=== PATIENT | male | born 1990 | race Caucasian/White ===

== ENCOUNTER 2023-03-25 14:42 | Emergency (ER) | payer MEDICAID ==
[~2023-03-25] VITALS: Ht 167.6 cm; Wt 73.0 kg
[2023-03-25 14:44] VITALS: BP 112/71; PULSE 91; RESP 14; TEMP 98; O2SAT 96
[2023-03-25 16:17] LABS: BASOPHILS % 0.4 % (0.0-2.0); EOSINOPHILS % 4.4 % (0.0-5.0); HEMATOCRIT. 40.9 % (42.0-52.0); LYMPHOCYTES % 24.6 % (20.0-50.0); MEAN CORPUSCULAR HEMOGLOBIN 31.5 pg (28.0-32.0); MEAN CORPUSCULAR HGB CONC 34.2 g/dL (31.0-37.0); MEAN CORPUSCULAR VOLUME 92.2 fL (80.0-94.0); MONOCYTES % 8.2 % (2.0-8.0); NEUTROPHILS % 62.4 % (40.0-76.0); PLATELET 249 x1000/uL (130-400); RED BLOOD CELL COUNT 4.44 mill/uL (4.7-6.1); RED CELL DISTRIBUTION WIDTH 13.4 % (11.6-14.6); WHITE BLOOD COUNT 8.7 x1000/uL (4.5-11.0)
[2023-03-25 16:24] LABS: CHLORIDE 111 mEq/L (98-107); INDEX HEMOLYSI 1 (1-3); INDEX ICTERIC 1 (1-4); INDEX LIPEMIC 1 (1-3); SODIUM 141 mEq/L (136-145)
[2023-03-25 16:34] LABS: ALANINE AMINOTRANSFERASE 29 IU/L (13-61); ALBUMIN 3.6 g/dL (3.4-5.0); ASPARTATE AMINOTRANSFERASE 35 IU/L (15-37); BILIRUBIN TOTAL 0.3 mg/dL (0.1-1.0); CALCIUM 8.1 mg/dL (8.5-10.1); CARBON DIOXIDE 20 mEq/L (21-32); CREATININE 0.5 mg/dL (0.6-1.3); ETHANOL BLOOD 114 mg/dL (-10); GLUCOSE 106 mg/dL (70-105); PROTEIN TOTAL 6.8 g/dL (6.0-8.3); UREA NITROGEN BLOOD 9 mg/dL (7-21)
[2023-03-25 16:40] LABS: POTASSIUM 2.8 mEq/L (3.5-5.1)
[2023-03-25] MEDS ORDERED: MAGNESIUM OXIDE 400MG TABLET PO SCH (16:45)
[2023-03-25] MEDS ORDERED: POTASSIUM CHLORIDE 20MEQ TABLET SR PO ONE (16:45)
== END 2023-03-25 18:13 | disposition home or self-care (01) ==
LOC: ER 14:48
DX: F10.20 Alcohol dependence, uncomplicated (principal); R41.82 Altered mental status, unspecified; Y90.5 Blood alcohol level of 100-119 mg/100 ml
CPT/HCPCS: 36415; 80053; 80320; 85025; 99283; G0480

== ENCOUNTER 2023-05-02 22:57 | Emergency (ER) | payer MEDICAID ==
[~2023-05-02] VITALS: Ht 172.7 cm; Wt 98.2 kg
[2023-05-02 23:42] VITALS: O2SAT 97
[2023-05-03 00:05] LABS: BASOPHILS % 1.1 % (0.0-2.0); EOSINOPHILS % 6.1 % (0.0-5.0); HEMATOCRIT. 39.9 % (42.0-52.0); HEMOGLOBIN. 13.5 g/dL (14.0-18.0); LYMPHOCYTES % 30.3 % (20.0-50.0); MEAN CORPUSCULAR HEMOGLOBIN 31.3 pg (28.0-32.0); MEAN CORPUSCULAR HGB CONC 33.9 g/dL (31.0-37.0); MEAN CORPUSCULAR VOLUME 92.3 fL (80.0-94.0); MONOCYTES % 7.7 % (2.0-8.0); NEUTROPHILS % 54.8 % (40.0-76.0); PLATELET 259 x1000/uL (130-400); RED BLOOD CELL COUNT 4.33 mill/uL (4.7-6.1); RED CELL DISTRIBUTION WIDTH 13.4 % (11.6-14.6); WHITE BLOOD COUNT 8.4 x1000/uL (4.5-11.0)
[2023-05-03 00:11] LABS: CHLORIDE 110 mEq/L (98-107); INDEX HEMOLYSI 1 (1-3); INDEX ICTERIC 1 (1-4); INDEX LIPEMIC 1 (1-3); POTASSIUM 3.5 mEq/L (3.5-5.1); SODIUM 141 mEq/L (136-145)
[2023-05-03 00:19] LABS: ALANINE AMINOTRANSFERASE 32 IU/L (13-61); ALBUMIN 3.8 g/dL (3.4-5.0); ASPARTATE AMINOTRANSFERASE 23 IU/L (15-37); BILIRUBIN TOTAL 0.4 mg/dL (0.1-1.0); CALCIUM 8.6 mg/dL (8.5-10.1); CARBON DIOXIDE 25 mEq/L (21-32); CREATININE 0.7 mg/dL (0.6-1.3); ETHANOL BLOOD < 10 mg/dL (<10); GLUCOSE 130 mg/dL (70-105); PROTEIN TOTAL 6.6 g/dL (6.0-8.3); UREA NITROGEN BLOOD 9 mg/dL (7-21)
[2023-05-03 02:43] LABS: CLARITY URINE CLEAR (CLEAR); COLOR URINE YELLOW (YELLOW); GLUCOSE URINE NEGATIVE (NEGATIVE); KETONES URINE NEGATIVE (NEGATIVE); LEUKOCYTE ESTERASE URINE NEGATIVE (NEGATIVE); NITRITE URINE NEGATIVE (NEGATIVE); OCCULT BLOOD URINE NEGATIVE (NEGATIVE); PH URINE 5.5 (4.5-8.0); PROTEIN URINE NEGATIVE (NEGATIVE); SPECIFIC GRAVITY URINE 1.022 (1.005-1.030)
[2023-05-03 03:05] LABS: *AMPHETAMINES SCREEN URINE NEGATIVE (NEGATIVE); *BARBITURATES SCREEN URINE NEGATIVE (NEGATIVE); *BENZODIAZEPINES SCREEN URINE NEGATIVE (NEGATIVE); *COCAINE SCREEN URINE NEGATIVE (NEGATIVE); CANNABINOID URINE SCREEN NEGATIVE (NEGATIVE); ECSTASY MDMA SCREEN URINE NEGATIVE (NEGATIVE); OPIATES URINE SCREEN NEGATIVE (NEGATIVE); PHENCYCLIDINE URINE SCREEN NEGATIVE (NEGATIVE)
[2023-05-03 10:08] VITALS: BP 132/75; PULSE 80; RESP 16; TEMP 98
== END 2023-05-03 10:23 | disposition home or self-care (01) ==
LOC: ER 22:57
DX: R44.3 Hallucinations, unspecified (principal); Z20.822 Contact with and (suspected) exposure to COVID-19
CPT/HCPCS: 80053; 80320; 85025; 36415; 99284; 80305; 81003; 71045; 87426; C9803; G0480

== ENCOUNTER 2023-08-19 02:53 | Emergency (ER) | payer MEDICAID ==
[~2023-08-19] VITALS: Ht 172.7 cm; Wt 95.0 kg
[2023-08-19 03:07] VITALS: BP 124/84; PULSE 86; RESP 16; TEMP 98.7; O2SAT 100
== END 2023-08-19 08:01 | disposition left against medical advice (07) ==
LOC: ER 02:53
DX: R53.1 Weakness (principal); Z53.21 Procedure and treatment not carried out due to patient leaving prior to being seen by health care provider
CPT/HCPCS: 99281

== ENCOUNTER 2024-01-24 10:44 | Emergency (ER) | payer MEDICAID ==
[~2024-01-24] VITALS: Ht 177.8 cm; Wt 81.0 kg
[2024-01-24 10:59] VITALS: BP 152/62; PULSE 118; RESP 20; TEMP 97.9; O2SAT 100
== END 2024-01-24 11:00 | disposition left against medical advice (07) ==
LOC: ER 10:44
DX: F41.9 Anxiety disorder, unspecified (principal); Z53.21 Procedure and treatment not carried out due to patient leaving prior to being seen by health care provider

== ENCOUNTER 2024-02-23 20:35 | Emergency (ER) | payer MEDICAID ==
[~2024-02-23] VITALS: Ht 172.7 cm; Wt 70.0 kg
[2024-02-23 20:39] VITALS: BP 148/88; PULSE 104; RESP 18; TEMP 98.4; O2SAT 99
[2024-02-24] MEDS ORDERED: HYDR50SY PO (03:55)
[2024-02-24] MEDS ORDERED: ARIP20TA2 MT (03:55)
== END 2024-02-23 21:01 | disposition left against medical advice (07) ==
LOC: ER 20:35
DX: F41.1 Generalized anxiety disorder (principal); F12.10 Cannabis abuse, uncomplicated; F10.20 Alcohol dependence, uncomplicated; Z88.8 Allergy status to other drugs, medicaments and biological substances; Y90.9 Presence of alcohol in blood, level not specified
CPT/HCPCS: 99283

== ENCOUNTER 2024-02-24 02:41 | Emergency (ER) | payer MEDICAID ==
[~2024-02-24] VITALS: Ht 170.2 cm; Wt 73.0 kg
[2024-02-24 02:57] VITALS: O2SAT 100
[2024-02-24] MEDS ORDERED: ARIP20TA2 MT (03:55)
[2024-02-24] MEDS ORDERED: HYDR50SY PO (03:55)
[2024-02-24] MEDS ORDERED: ALPRAZOLAM 0.5 MG TABLET PO ONE (04:00)
[2024-02-24] MEDS: OLANZAPINE 5MG TABLET ODT PO ONE (04:28)
[2024-02-24] MEDS: ALPRAZOLAM 0.25 MG TABLET PO NR (04:28)
[2024-02-24 04:30] VITALS: BP 136/86; PULSE 89; RESP 20; TEMP 98.8
== END 2024-02-24 04:33 | disposition home or self-care (01) ==
LOC: ER 02:41
DX: F41.9 Anxiety disorder, unspecified (principal); F20.9 Schizophrenia, unspecified; F12.90 Cannabis use, unspecified, uncomplicated; F10.20 Alcohol dependence, uncomplicated; Z91.148 Patient's other noncompliance with medication regimen for other reason; Z88.8 Allergy status to other drugs, medicaments and biological substances
CPT/HCPCS: 99283

== ENCOUNTER 2024-02-24 22:29 | Emergency (ER) | payer MEDICAID ==
[~2024-02-24] VITALS: Ht 406.4 cm; Wt 91.0 kg
[~2024-02-24 22:29] MED LIST: ARIP20TA2 MT; HYDR50SY PO
[2024-02-24 22:38] VITALS: BP 132/86; PULSE 99; RESP 16; TEMP 97.4; O2SAT 100
== END 2024-02-24 23:10 | disposition home or self-care (01) ==
LOC: ER 22:29
DX: F10.129 Alcohol abuse with intoxication, unspecified (principal); F20.9 Schizophrenia, unspecified; F12.10 Cannabis abuse, uncomplicated; Y90.9 Presence of alcohol in blood, level not specified
CPT/HCPCS: 99283

== ENCOUNTER 2024-03-03 05:07 | Emergency (ER) | payer MEDICAID ==
[~2024-03-03] VITALS: Ht 172.7 cm; Wt 86.0 kg
[2024-03-03 05:13] VITALS: O2SAT 100
[2024-03-03 05:18] VITALS: BP 139/87; PULSE 83; RESP 18; TEMP 98.2; O2SAT 99
== END 2024-03-03 06:00 | disposition left against medical advice (07) ==
LOC: ER 05:07
DX: F41.9 Anxiety disorder, unspecified (principal); Z53.21 Procedure and treatment not carried out due to patient leaving prior to being seen by health care provider

== ENCOUNTER 2024-10-05 09:03 | Emergency (ER) | payer MEDICAID ==
[~2024-10-05] VITALS: Ht 172.7 cm; Wt 77.0 kg
[~2024-10-05 09:03] MED LIST changes: +HYDR50SO PO; -HYDR50SY PO
[2024-10-05 09:05] VITALS: O2SAT 100
[2024-10-05 09:17] VITALS: BP 129/76; PULSE 89; RESP 16; TEMP 36.6; O2SAT 98
== END 2024-10-05 10:45 | disposition home or self-care (01) ==
LOC: ER 09:03
DX: F41.9 Anxiety disorder, unspecified (principal); Z88.8 Allergy status to other drugs, medicaments and biological substances; Z59.00 Homelessness unspecified; Z86.59 Personal history of other mental and behavioral disorders
CPT/HCPCS: 99281

== ENCOUNTER 2025-06-03 08:45 | Emergency (ER) | payer MEDICAID ==
[~2025-06-03] VITALS: Ht 170.2 cm; Wt 79.0 kg
[2025-06-03 08:50] VITALS: O2SAT 97
[2025-06-03 09:25] VITALS: BP 145/84; PULSE 87; RESP 18; TEMP 36.7; O2SAT 99
[2025-06-03 10:08] LABS: BASOPHILS % 0.6 % (0.0-2.0); EOSINOPHILS % 5.0 % (0.0-5.0); HEMATOCRIT. 41.6 % (42.0-52.0); HEMOGLOBIN. 13.8 g/dL (14.0-18.0); LYMPHOCYTES % 16.3 % (20.0-50.0); MEAN PLATELET VOLUME 8.4 fl (7.4-10.4); MONOCYTES % 9.8 % (2.0-8.0); NEUTROPHILS % 68.3 % (40.0-76.0); PLATELET 283 x1000/uL (130-400); RED BLOOD CELL COUNT 4.47 mill/uL (4.7-6.1); RED CELL DISTRIBUTION WIDTH 12.9 % (11.6-14.6)
[2025-06-03 10:22] LABS: CREATININE 0.6 mg/dL (0.6-1.3)
[2025-06-03 10:23] LABS: UREA NITROGEN BLOOD 8 mg/dL (9-23)
== END 2025-06-03 10:54 | disposition left against medical advice (07) ==
LOC: ER 08:45
DX: F20.9 Schizophrenia, unspecified (principal); F15.90 Other stimulant use, unspecified, uncomplicated; F41.9 Anxiety disorder, unspecified; Z88.8 Allergy status to other drugs, medicaments and biological substances; Z79.899 Other long term (current) drug therapy
CPT/HCPCS: 36415; 80048; 80307; 80329; 85025; 99283

== ENCOUNTER 2025-07-05 07:05 | Emergency (ER) | payer MEDICAID ==
[~2025-07-05] VITALS: Ht 170.2 cm; Wt 77.0 kg
[2025-07-05 07:41] VITALS: BP 138/91; PULSE 89; RESP 18; TEMP 37.1; O2SAT 99
[2025-07-17] MEDS ORDERED: IBUP-1455 MT (03:40)
== END 2025-07-05 09:03 | disposition home or self-care (01) ==
LOC: ER 07:05
DX: Z76.5 Malingerer [conscious simulation] (principal); F41.9 Anxiety disorder, unspecified; F20.9 Schizophrenia, unspecified; F12.90 Cannabis use, unspecified, uncomplicated; F10.90 Alcohol use, unspecified, uncomplicated; Z79.899 Other long term (current) drug therapy; Z88.8 Allergy status to other drugs, medicaments and biological substances; Y90.9 Presence of alcohol in blood, level not specified
CPT/HCPCS: 99283

== ENCOUNTER 2025-07-05 14:20 | Emergency (ER) | payer MEDICAID ==
[~2025-07-05] VITALS: Ht 165.1 cm; Wt 75.0 kg
[2025-07-05 14:27] VITALS: O2SAT 99
[2025-07-05 16:02] LABS: BASOPHILS % 1.1 % (0.0-2.0); EOSINOPHILS % 5.1 % (0.0-5.0); HEMATOCRIT. 42.2 % (42.0-52.0); HEMOGLOBIN. 14.0 g/dL (14.0-18.0); LYMPHOCYTES % 23.0 % (20.0-50.0); MEAN PLATELET VOLUME 7.8 fl (7.4-10.4); MONOCYTES % 6.9 % (2.0-8.0); NEUTROPHILS % 63.9 % (40.0-76.0); PLATELET 306 x1000/uL (130-400); RED BLOOD CELL COUNT 4.64 mill/uL (4.7-6.1); RED CELL DISTRIBUTION WIDTH 13.2 % (11.6-14.6)
[2025-07-05 16:18] LABS: CREATININE 0.8 mg/dL (0.6-1.3)
[2025-07-05 16:19] LABS: ETHANOL BLOOD < 10 mg/dL (<10); UREA NITROGEN BLOOD 9 mg/dL (9-23)
[2025-07-05 20:48] LABS: *AMPHETAMINES SCREEN URINE NEGATIVE (NEGATIVE); *BARBITURATES SCREEN URINE NEGATIVE (NEGATIVE); *BENZODIAZEPINES SCREEN URINE NEGATIVE (NEGATIVE); *COCAINE SCREEN URINE NEGATIVE (NEGATIVE); CANNABINOID URINE SCREEN NEGATIVE (NEGATIVE); METHADONE URINE SCREEN NEGATIVE (NEGATIVE); OPIATES URINE SCREEN NEGATIVE (NEGATIVE); PHENCYCLIDINE URINE SCREEN NEGATIVE (NEGATIVE)
[2025-07-05 20:49] LABS: ECSTASY MDMA SCREEN URINE NEGATIVE (NEGATIVE)
[2025-07-06] VITALS: BP 142/84; PULSE 81; RESP 18; TEMP 36.8; O2SAT 98
[2025-07-17] MEDS ORDERED: IBUP-1455 MT (03:40)
== END 2025-07-06 02:00 | disposition home or self-care (01) ==
LOC: ER 14:20
DX: F41.9 Anxiety disorder, unspecified (principal); F20.9 Schizophrenia, unspecified; Z88.8 Allergy status to other drugs, medicaments and biological substances; Z79.899 Other long term (current) drug therapy; Z20.822 Contact with and (suspected) exposure to COVID-19
CPT/HCPCS: 36415; 80048; 80305; 80307; 80320; 80329; 85025; 87426; 93005; 99284; G0480

== ENCOUNTER 2025-07-06 11:23 | Emergency (ER) | payer MEDICAID ==
[~2025-07-06] VITALS: Ht 172.7 cm; Wt 77.0 kg
[2025-07-06 11:39] VITALS: BP 165/97; PULSE 83; RESP 18; TEMP 99.1; O2SAT 97
[2025-07-17] MEDS ORDERED: IBUP-1455 MT (03:40)
== END 2025-07-06 14:35 | disposition left against medical advice (07) ==
LOC: ER 11:23
DX: M79.604 Pain in right leg (principal)
CPT/HCPCS: 99281

== ENCOUNTER 2025-07-11 20:24 | Emergency (ER) | payer MEDICAID ==
[~2025-07-11] VITALS: Ht 170.2 cm; Wt 77.0 kg
[2025-07-11 20:30] VITALS: O2SAT 98
[2025-07-11 20:36] VITALS: BP 148/95; PULSE 102; RESP 18; TEMP 37; O2SAT 100
[2025-07-17] MEDS ORDERED: IBUP-1455 MT (03:40)
== END 2025-07-12 00:07 | disposition left against medical advice (07) ==
LOC: ER 20:24
DX: F41.9 Anxiety disorder, unspecified (principal)
CPT/HCPCS: 99281